=== PATIENT | male | born 1995 | race Asian ===

== ENCOUNTER 2017-12-12 21:10 | Emergency (ER) | payer OTHER ==
[2017-12-12] MEDS ORDERED: NS 1,000 ML IV ONE ×2 (21:19)
[2017-12-12] MEDS ORDERED: LORazepam 2 MG/ML INJ IVP ONE ×2 (21:19→22:01)
--- NOTE | 2017-12-12 21:19 | EDPHY ---
H & P Smoking Status: Never smoked Time Seen by Provider: 12/12/17 21:16 HPI/ROS: Chief complaint. Syncope, LSD ingestion HPI. 22-year-old male at the [employer] concert taking LSD and then apparently had a [place]opal episode [place] the stadium. Patient is baseline healthy. He received Versed IM and then IV as he was combative for EMS. Patient has really no complaints. Denies chest discomfort or trouble breathing. No abdominal pain or vomiting diarrhea. Unknown other ingestions ROS Constitutional. no fever/chills, no weakness Eyes. no problems with vision ENT. no sore throat, no nasal drainage Cardiovascular. no chest pain Respiratory. no shortness of breath, no cough Abdominal. no abdominal pain, no nausea/vomiting, no diarrhea . no problems urinating MS. no calf pain/swelling, no neck/back pain, no joint pain Skin. no rash Lymph. no swollen glands Neuro. Syncope (Galileo Brito) Past Medical/Surgical History: Healthy (Galileo Brito) Social History: Single nonsmoker, no evidence of alcohol. Positive LSD ingestion by history ( Galileo Brito) Physical Exam: General Appearance: Alert well-developed male vital signs significant for heart rate 141 Eyes: Pupils equal and round no pallor or injection. ENT, Mouth: Mucous membranes are moist. Respiratory: There are no retractions, lungs are clear to auscultation. Cardiovascular: Regular rate and rhythm with tachycardia Gastrointestinal: Abdomen is soft and nontender, no masses, bowel sounds normal. Neurological: Awake and alert, sensory and motor exams grossly normal. Skin: Warm and dry, no rashes. Musculoskeletal: Neck is supple nontender. Extremities symmetrical, full range of motion. Psychiatric: Oriented times person (Galileo Brito) Constitutional: Initial Vital Signs Temperature (C) 37.2 C 12/12/17 21:18 Heart Rate 140 H 12/12/17 21:18 Respiratory Rate 18 12/12/17 21:18 Blood Pressure 127/64 H 12/12/17 21:18 O2 Sat (%) 95 12/12/17 21:18 O2 Delivery Mode Room Air Allergies/Adverse Reactions: No Known Allergies Allergy (Verified 12/12/17 21:19) Home Medications: Medication Instructions Recorded NK [No Known Home Meds] 12/12/17 Medical Decision Making - Diagnostics EKG Interpretation: EKG interpreted by me shows sinus tachycardia with normal interval and axis. QRS is normal there is no significant ST elevation or depression. No arrhythmia. The rate is 133 (Galileo Brito) Procedures: IV normal saline, monitor Ativan IV (Galileo Brito) ED Course/Re-evaluation: Patient continues to be somewhat agitated. Re-evaluation at 10:00 p.m.. Ativan IV. 10:25 p.m. patient remains agitated and has his pulled out his IV. He is given Haldol and Benadryl IM Re-evaluation 11:10 p.m. Patient is resting comfortably and no longer agitated ( Galileo Brito) 6:00 a.m.- Patient has slept for most of my shift. He is now awake and alert. He feels well without any complaint. He has been able to walk throughout the emergency department without difficulty. His friend was not able to pick him up. He is able to take a taxi home and will be discharged from the emergency department. ( Abby Sheppard) Differential Diagnosis: Patient admits to taking LSD. He has been agitated. There is no evidence for acute injury or illness. Unclear whether the patient has co-ingested other intoxicants (Galileo Brito) Care Turn Over: Dr. Sheppard at 11:10 pm (Galileo Brito) - Data Points Laboratory Results: Laboratory Results 12/12/17 21:50 12/12/17 21:50 12/12/17 12/12/17 21:50 21:50 WBC 14.32 10^3/uL H 10^3/uL (3.80-9.50) RBC 4.36 10^6/uL L 10^6/uL (4.40-6.38) Hgb 14.0 g/dL g/dL (13.7-17.5) Hct 39.3 % L % (40.0-51.0) MCV 90.1 fL fL (81.5-99.8) MCH 32.1 pg pg (27.9-34.1) MCHC 35.6 g/dL g/dL (32.4-36.7) RDW 12.6 % % (11.5-15.2) Plt Count 219 10^3/uL 10^3/uL (150-400) MPV 9.3 fL fL (8.7-11.7) Neut % (Auto) 87.6 % H % (39.3-74.2) Lymph % (Auto) 4.6 % L % (15.0-45.0) [place] % (Auto) 7.0 % % (4.5-13.0) Eos % (Auto) 0.1 % L % (0.6-7.6) Baso % (Auto) 0.3 % % (0.3-1.7) Nucleat RBC Rel Count 0.0 % % (0.0-0.2) Absolute Neuts (auto) 12.55 10^3/uL H 10^3/uL (1.70-6.50) Absolute Lymphs (auto) 0.66 10^3/uL L 10^3/uL (1.00-3.00) Absolute Monos (auto) 1.00 10^3/uL H 10^3/uL (0.30-0.80) Absolute Eos (auto) 0.01 10^3/uL L 10^3/uL (0.03-0.40) Absolute Basos (auto) 0.04 10^3/uL 10^3/uL (0.02-0.10) Absolute Nucleated RBC 0.00 10^3/uL 10^3/uL (0-0.01) Immature Gran % 0.4 % % (0.0-1.1) Immature Gran # 0.06 10^3/uL 10^3/uL (0.00-0.10) Sodium 131 mEq/L L mEq/L (135-145) Potassium 3.8 mEq/L mEq/L (3.3-5.0) Chloride 100 mEq/L mEq/L (97-110) Carbon Dioxide 19 mEq/l L mEq/l (22-31) Anion Gap 12 mEq/L mEq/L (8-16) BUN 12 mg/dL mg/dL (7-23) Creatinine 1.1 mg/dL mg/dL (0.7-1.3) Estimated GFR > 60 Glucose 224 mg/dL H mg/dL (70-100) Calcium 8.7 mg/dL mg/dL (8.5-10.4) Medications Given: Discontinued Medications Diphenhydramine HCl (Benadryl Injection) 25 mg IM EDNOW ONE Stop: 12/12/17 22:26 Last Admin: 12/12/17 22:31 Dose: 25 mg Haloperidol Lactate (Haldol Injection) 10 mg IM EDNOW ONE Stop: 12/12/17 22:25 Last Admin: 12/12/17 22:31 Dose: 10 mg Sodium Chloride (Ns) 1,000 mls @ 0 mls/hr IV EDNOW ONE; Wide Open PRN Reason: Protocol Stop: 12/12/17 21:20 Last Admin: 12/12/17 21:36 Dose: 1,000 mls Sodium Chloride (Ns) 1,000 mls @ 0 mls/hr IV EDNOW ONE; Wide Open PRN Reason: Protocol Stop: 12/12/17 21:20 Last Admin: 12/12/17 21:36 Dose: 1,000 mls Lorazepam (Ativan Injection) 1 mg IVP EDNOW ONE Stop: 12/12/17 21:20 Last Admin: 12/12/17 21:37 Dose: 1 mg Lorazepam (Ativan Injection) 1 mg IVP EDNOW ONE Stop: 12/12/17 22:02 Last Admin: 12/12/17 22:07 Dose: 1 mg Departure - Departure Disposition: Home, Routine, Self-Care Clinical Impression: LSD ingestion Condition: Fair Instructions: Polysubstance Abuse (ED) Additional Instructions: Drink plenty of fluids and stay hydrated. Ibuprofen 600 mg every 6 hr as needed for achiness or headache. Return for worsening symptoms. Recheck in 1 day if any continuing symptoms Referrals: Patient,NotPresent [Unknown] - As per Instructions
--- NOTE | 2017-12-12 21:52 | CPEKG ---
Heart Rate: 133 RR Interval: 451 P-R Interval: 144 QRSD Interval: 96 QT Interval: 308 QTC Interval: 459 P [place]: 58 QRS [place]: 83 T Wave [place]: 26 EKG Severity - ABNORMAL ECG - EKG Impression: SINUS TACHYCARDIA EKG Impression: NONSPECIFIC T ABNORMALITIES, ANT-LAT LEADS Electronically Signed By: Galileo Brito 12-Dec-2017 22:16:24
[2017-12-12 22:00] LABS: PLATELET COUNT 219 10^3/uL (150-400)
[2017-12-12] MEDS ORDERED: LORazepam 2 MG/ML INJ ONE (22:02)
[2017-12-12] MEDS ORDERED: HALOPERIDOL LACT 5 MG/ML INJ IM ONE (22:24)
[2017-12-12] MEDS ORDERED: HALOPERIDOL LACT 5 MG/ML INJ ONE (22:25)
[2017-12-13 05:59] VITALS: BP 114/67
== END 2017-12-13 06:07 | disposition home or self-care (01) ==
LOC: EDBD → EDUNIT#
DX: T40.8X1A Poisoning by lysergide [LSD], accidental (unintentional), initial encounter (principal); E86.9 Volume depletion, unspecified
CPT/HCPCS: 96374; J1200; J1630; J2060